=== PATIENT | female | born 1990 | race Caucasian/White ===

== ENCOUNTER 2017-02-14 21:53 | Emergency (ER) | payer OTHER ==
[~2017-02-14] VITALS: Ht 177.8 cm; Wt 132.0 kg
[2017-02-14 21:57] VITALS: TEMP 36.8; Ht 177.8 cm; Wt 132.0 kg
[2017-02-14] MEDS ORDERED: OXYCODONE HCL IR 5 MG TAB (IMMEDIATE RELEASE) PO STA (22:18)
[2017-02-14] MEDS ORDERED: OXYC1TAB3 PO (23:40)
[2017-02-14] MEDS ORDERED: OXYCODONE IR HOME PACK PO ONE (23:45)
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
[2017-02-14 23:51] VITALS: BP 134/78; PULSE 84; O2SAT 97
--- NOTE | 2017-02-15 08:18 | DIAGNOSTIC IMAGING REPORT ---
LEFT RIBS UNILATERAL WITH PA CHEST CLINICAL HISTORY: L rib pain, pain with breathing COMPARISON STUDY: None. FINDINGS: There are low lung volumes. No rib fractures. No pneumothorax. The lungs are clear. The heart is normal in size. IMPRESSION: No rib fractures. No pneumothorax. Electronically signed by: Jaziel Diane M.D. 02/15/2017 8:17 AM Dictated Date/Time: 02/15/2017 8:15 AM
== END 2017-02-14 23:52 | disposition home or self-care (01) ==
LOC: C.EDB 21:55 → C.EDD 23:52
DX: S20.212A Contusion of left front wall of thorax, initial encounter (principal); V87.7XXA Person injured in collision between other specified motor vehicles (traffic), initial encounter; Y93.89 Activity, other specified; Y99.8 Other external cause status; F17.200 Nicotine dependence, unspecified, uncomplicated; Z90.49 Acquired absence of other specified parts of digestive tract; Z83.3 Family history of diabetes mellitus; Z82.49 Family history of ischemic heart disease and other diseases of the circulatory system